=== PATIENT | male | born 1980 | race African-American/Black ===

== ENCOUNTER 2021-03-27 10:17 | Emergency (ER) | payer MEDICAID ==
[~2021-03-27] VITALS: Ht 177.8 cm; Wt 110.0 kg
[2021-03-27] MEDS ORDERED: SODIUM CHLORIDE 0.9% 1,000 ML IV ONE (11:00)
[2021-03-27 11:57] LABS: BASOPHILS % 0.5 % (0.0-2.0); EOSINOPHILS % 1.5 % (0.0-5.0); HEMOGLOBIN. 15.2 g/dL (14.0-18.0); LYMPHOCYTES % 18.3 % (20.0-50.0); MEAN CORPUSCULAR HEMOGLOBIN 23.9 pg (28.0-32.0); MEAN CORPUSCULAR VOLUME 72.4 fL (80.0-94.0); MONOCYTES % 5.7 % (2.0-8.0); PLATELET 185 x1000/uL (130-400); RED BLOOD CELL COUNT 6.35 mill/uL (4.7-6.1); RED CELL DISTRIBUTION WIDTH 16.8 % (11.6-14.6)
[2021-03-27 12:12] LABS: CHLORIDE 103 mEq/L (98-107)
[2021-03-27 12:21] LABS: CREATINE KINASE 341 IU/L (39-308)
[2021-03-27] MEDS ORDERED: KETOROLAC 15MG/ML VIAL IV ONE (13:30)
[2021-03-27 14:29] VITALS: BP 159/95
== END 2021-03-27 14:30 | disposition home or self-care (01) ==
LOC: ER 10:17
DX: M62.82 Rhabdomyolysis (principal); I10 Essential (primary) hypertension; X50.0XXA Overexertion from strenuous movement or load, initial encounter; Y93.89 Activity, other specified; Y92.018 Other place in single-family (private) house as the place of occurrence of the external cause
CPT/HCPCS: 36415; 80053; 82550; 85025; 93005; 96360; 96361; 99283; J7030